=== PATIENT | female | born 1960 | race African-American/Black ===

== ENCOUNTER 2022-01-31 11:33 | Inpatient (IN) | payer MEDICAID, OTHER ==
[~2022-01-31] VITALS: Ht 165.1 cm; Wt 79.8 kg
[~2022-01-31 11:33] MED LIST: ASPI-1079 PO; ATOR10TA PO; BENA10TA74 PO; FERR142T6 PO; HYDR25TA PO; INSU100C3 SQ; METFORMIN PO; NPH,100V SQ; TRAM100T25 PO
[2022-01-31 12:08] LABS: BASOPHILS % 0.3 % (0.0-2.0); HEMOGLOBIN. 8.4 g/dL (12.0-16.0); LYMPHOCYTES % 13.2 % (20.0-50.0); MEAN CORPUSCULAR HEMOGLOBIN 22.7 pg (28.0-32.0); MEAN PLATELET VOLUME 6.9 fl (7.4-10.4); MONOCYTES % 6.5 % (2.0-8.0); PLATELET 267 x1000/uL (130-400); RED BLOOD CELL COUNT 3.69 mill/uL (4.2-5.4); RED CELL DISTRIBUTION WIDTH 21.9 % (11.6-14.6)
[2022-01-31 12:13] LABS: CHLORIDE 101 mEq/L (98-107)
[2022-01-31] MEDS ORDERED: CEFTRIAXONE 1 G PREMIX 50 ML IV NR (14:45)
[2022-01-31] MEDS ORDERED: ASPIRIN 81MG TABLET PO ONE (15:45)
[2022-01-31] MEDS ORDERED: DIPHENHYDRAMINE 50MG/ML VIAL IV PRN (16:30)
[2022-01-31] MEDS ORDERED: CLONIDINE 0.1MG TABLET PO PRN (16:30)
[2022-01-31] MEDS ORDERED: MAGNESIUM/ALUMINUM HYDROXIDE/SIMETHICONE 30ML UDC PO PRN (16:30)
[2022-01-31] MEDS ORDERED: DEXTROSE 50% WATER 50ML SYRINGE IV PRN (16:30)
[2022-01-31] MEDS ORDERED: GUAIFENESIN 200MG/10ML SUGAR FREE UDC PO PRN (16:30)
[2022-01-31] MEDS ORDERED: HYDROCODONE/ACETAMINOPHEN 5/325MG TABLET PO PRN (16:30)
[2022-01-31] MEDS ORDERED: DOCUSATE SODIUM 100MG CAPSULE PO PRN (16:30)
[2022-01-31] MEDS ORDERED: LORAZEPAM 0.5MG TABLET PO PRN (16:30)
[2022-01-31] MEDS ORDERED: ACETAMINOPHEN 325MG TABLET PO PRN ×2 (16:30)
[2022-01-31] MEDS ORDERED: IPRATROPIUM/ALBUTEROL 0.5-3(2.5)MG/3ML NEB HHN PRN (16:30)
[2022-01-31 16:41] LABS: BG CARBOXYHEMOGLOBIN 0.6 % (0.5-1.5); BG DEOXYHEMOGLOBIN 12.1 % (0.0-5.0); BG METHEMOGLOBIN 0.3 % (0.0-1.5); BG OXYGEN SATURATION 87.8 % (92.0-98.5); BG PCO2 93.2 mmHg (35.0-45.0); BG PO2 56.3 mmHg (75.0-100.0); BG SAMPLE SITE RIGHT RADIAL; BG TOTAL HEMOGLOBIN 9.1 g/dL (12.0-18.0); BG VENT MODE NASAL CANNULA
[2022-01-31] MEDS: AZITHROMYCIN 500 MG in DEXT 5% WATER 250 ML IV SCH ×2 (16:45→18:47)
[2022-01-31 16:49] LABS: CLARITY URINE CLEAR (CLEAR); COLOR URINE YELLOW (YELLOW); KETONES URINE NEGATIVE (NEGATIVE); LEUKOCYTE ESTERASE URINE NEGATIVE (NEGATIVE); NITRITE URINE NEGATIVE (NEGATIVE); OCCULT BLOOD URINE NEGATIVE (NEGATIVE); PH URINE 6.5 (4.5-8.0); PROTEIN URINE 1+ (NEGATIVE); SPECIFIC GRAVITY URINE 1.013 (1.005-1.030); UROBILINOGEN URINE 0.2 E.U./dL (0.2-1.0)
[2022-01-31] MEDS ORDERED: AMLODIPINE 5MG TABLET PO SCH (17:00)
[2022-01-31] MEDS ORDERED: HYDRALAZINE 20MG/ML VIAL IV PRN (17:00)
[2022-01-31] MEDS: BLOOD SUGAR DIAGNOSTIC STRIP TEST SCH ×3 (17:00→21:00)
[2022-01-31 17:30] VITALS: BP 154/77
[2022-01-31] MEDS ORDERED: LACTATED RINGERS 1,000 ML IV NR (17:40)
[2022-01-31 17:45] VITALS: BP 154/77
[2022-01-31] MEDS ORDERED: NALOXONE HCL 0.4MG/ML VIAL IV PRN (17:45)
[2022-01-31] MEDS ORDERED: INSULIN LISPRO 100 UNITS/ML SUBCUT SCH (17:50)
[2022-01-31] MEDS ORDERED: ENOXAPARIN 40MG/0.4ML SYR SUBCUT SCH (18:30)
[2022-01-31 20:00] VITALS: BP 137/70
[2022-01-31] MEDS ORDERED: PNEUMOCOCCAL 23-VAL P-SAC VAC 0.5 ML IM ONE (20:15)
[2022-01-31] MEDS ORDERED: DOXYCYCLINE 100 MG in DEXT 5% WATER 100 ML IV SCH (21:00)
[2022-02-01] MEDS ORDERED: CEFTRIAXONE 1 G PREMIX 50 ML IV SCH (09:00)
[2022-02-01] MEDS ORDERED: CEFTRIAXONE 1,000 MG in DEXTROSE 5% WATER 50 ML IV SCH (15:00)
== END 2022-01-31 21:15 | disposition left against medical advice (07) | DRG 139 ==
LOC: ER 12:00 → 6WST 15:46 → EDBEDREQ 15:50 → ENRESERV 16:25
PROVIDERS: ADMIT Family Medicine Adult Medicine; ATTEND Family Medicine Adult Medicine
DX: J18.9 Pneumonia, unspecified organism (principal); J96.02 Acute respiratory failure with hypercapnia; E43 Unspecified severe protein-calorie malnutrition; E11.65 Type 2 diabetes mellitus with hyperglycemia; E78.5 Hyperlipidemia, unspecified; D64.9 Anemia, unspecified; I10 Essential (primary) hypertension; Z53.29 Procedure and treatment not carried out because of patient's decision for other reasons; Z20.822 Contact with and (suspected) exposure to COVID-19; Z79.899 Other long term (current) drug therapy; Z79.82 Long term (current) use of aspirin
CPT/HCPCS: 36415; 36600; 71045; 80053; 81003; 82375; 82805; 82962; 83036; 83735; 83880; 84145; 84484; 85025; 87426; 93005; 99285; J0456; J0696; J1650; J1815; J3490; J7060